=== PATIENT | female | born 1945 | race African-American/Black ===

== ENCOUNTER 2016-09-11 20:41 | Emergency (ER) | payer MEDICARE ==
[~2016-09-11] VITALS: Ht 162.6 cm; Wt 113.6 kg
[2016-09-11 20:59] VITALS: BP 161/76
[2016-09-11] MEDS ORDERED: METF500T4 PO (21:04)
[2016-09-11] MEDS ORDERED: IBUPROFEN 600 MG TABLET PO ONE (21:45)
[2016-09-11] MEDS ORDERED: METHOCARBAMOL 500 MG TABLET PO ONE (22:00)
[2016-09-11] MEDS ORDERED: KETOROLAC TROMETHAMINE 60 MG/2 ML VIAL IM ONE (22:00)
== END 2016-09-11 22:06 | disposition home or self-care (01) ==
LOC: EMS 20:42
DX: S76.012A Strain of muscle, fascia and tendon of left hip, initial encounter (principal); E11.9 Type 2 diabetes mellitus without complications; I10 Essential (primary) hypertension; E78.00 Pure hypercholesterolemia, unspecified; V49.40XA Driver injured in collision with unspecified motor vehicles in traffic accident, initial encounter; Y93.89 Activity, other specified; Y92.89 Other specified places as the place of occurrence of the external cause; Y99.8 Other external cause status
CPT/HCPCS: 96372; 99283; J1885